=== PATIENT | female | born 1990 | race Caucasian/White ===

== ENCOUNTER → 2022-04-05 | Outpatient (CLI) | payer OTHER ==
[2022-04-05 09:55] LABS: BASO % 0.7 % (0.0-1.0); EOS % 0.5 % (0.0-3.0); HEMATOCRIT 40.9 % (36.0-47.0); LYMPH # 1.8 10^3/uL (1.5-5.0); LYMPH % 42.6 % (24.0-44.0); MEAN CORPUSCULAR HEMOGLOBIN 30.1 pg (27.0-33.0); MEAN CORPUSCULAR HGB CONC 34.2 g/dl (32.0-36.5); MONO # 0.3 10^3/uL (0.0-0.8); MONO % 6.8 % (2.0-8.0); NEUTROPHILS % 48.9 % (36.0-66.0); PLATELET COUNT, AUTOMATED 270 10^3/uL (150-450); RED BLOOD COUNT 4.65 10^6/uL (4.00-5.40); WHITE BLOOD COUNT 4.1 10^3/uL (4.0-10.0)
[2022-04-05 10:19] LABS: LIPASE 32 U/L (12-53)
[2022-04-05 10:22] LABS: ALBUMIN 3.8 G/DL (3.2-5.2); ALKALINE PHOSPHATASE 49 U/L (46-116); ALT/SGPT < 9 U/L (7.0-40); AMYLASE 56 U/L (30-118); AST/SGOT 21 U/L (<34); BILIRUBIN,TOTAL 0.2 MG/DL (0.3-1.2); BLOOD UREA NITROGEN 7 MG/DL (9-23); CALCIUM LEVEL 9.3 MG/DL (8.5-10.1); CARBON DIOXIDE LEVEL 26 MMOL/L (20-31); CHLORIDE LEVEL 103 MMOL/L (98-107); CREATININE FOR GFR 0.63 MG/DL (0.55-1.30); GLOMERULAR FILTRATION RATE > 60.0 (>60); GLUCOSE, FASTING 88 MG/DL (60-100); POTASSIUM SERUM 4.3 MMOL/L (3.5-5.1); SODIUM LEVEL 137 MMOL/L (136-145); TOTAL PROTEIN 7.1 G/DL (5.7-8.2)
[2022-04-05 10:33] LABS: THYROID STIMULATING HORMONE 1.009 uIU/ML (0.55-4.78)
[2022-04-05 10:50] LABS: HEPATITIS B SURFACE ANTIGEN NEGATIVE (NEGATIVE)
[2022-04-05 11:11] LABS: HEPATITIS B CORE ANTIBODY IGM NEGATIVE (NEGATIVE)
[2022-04-05 20:01] LABS: HEPATITIS C VIRUS ABY INDEX 0.1 INDEX (<0.8)
[2022-04-07 10:08] LABS: H PYLORI SERUM QUANT IGA <9.0 units (0.0-8.9); H PYLORI SERUM QUANT IGM <9.0 units (0.0-8.9); H PYLORI SERUM QUANT IgG ABY 1.25 (0.00-0.79)
== END ==
LOC: M LAB 09:12
PROVIDERS: ATTEND Nurse Practitioner Adult Health
DX: R10.816 Epigastric abdominal tenderness (principal); R11.2 Nausea with vomiting, unspecified

== ENCOUNTER → 2022-06-02 | Outpatient (CLI) | payer OTHER | LOC: M PLAIMG 09:39 | PROVIDERS: ATTEND Nurse Practitioner Adult Health | DX: M54.50 Low back pain, unspecified (principal) ==

== ENCOUNTER → 2022-06-05 | Outpatient (REF) | payer OTHER | LOC: M LAB REF 17:15 | PROVIDERS: ATTEND Physician Assistant | DX: N39.0 Urinary tract infection, site not specified (principal) ==

== ENCOUNTER → 2022-06-29 | Outpatient (CLI) | payer OTHER | LOC: M PLAIMG 15:26 | PROVIDERS: ATTEND Nurse Practitioner Adult Health | DX: M54.50 Low back pain, unspecified (principal); M54.16 Radiculopathy, lumbar region ==

== ENCOUNTER → 2022-07-28 | Outpatient (REF) | payer OTHER | LOC: M SFHCWAGY 17:11 | PROVIDERS: ATTEND Nurse Practitioner Family | DX: Z12.4 Encounter for screening for malignant neoplasm of cervix (principal) | CPT/HCPCS: 87624; G0123; G0463 ==

== ENCOUNTER → 2022-09-26 | Outpatient (REF) | payer OTHER | LOC: M SFHCWAGY 17:29 | PROVIDERS: ATTEND Nurse Practitioner Family | DX: N73.9 Female pelvic inflammatory disease, unspecified (principal); N76.0 Acute vaginitis ==

== ENCOUNTER → 2023-01-12 | Outpatient (CLI) | payer OTHER ==
[2023-01-12 10:33] LABS: URIC ACID 3.3 MG/DL (3.1-7.8)
[2023-01-12 10:35] LABS: C REACTIVE PROTEIN QUANTITATIV < 0.40 MG/DL (<1.0)
[2023-01-12 10:36] LABS: RHEUMATOID FACTOR QUANT < 3.5 IU/ML (<14)
[2023-01-13 23:07] LABS: ANA (HEP2) Negative (.); CYCLIC CITRULLINATED PEPTIDE 6 units (0-19)
== END ==
LOC: M LAB 08:44
PROVIDERS: ATTEND Nurse Practitioner Adult Health
DX: M54.50 Low back pain, unspecified (principal)

== ENCOUNTER → 2023-05-24 | Outpatient (CLI) | payer OTHER ==
[2023-05-24 17:57] LABS: HEMATOCRIT 38.5 % (36.0-47.0); HEMOGLOBIN 12.8 g/dl (12.0-15.5); MEAN CORPUSCULAR HEMOGLOBIN 29.6 pg (27.0-33.0); MEAN CORPUSCULAR HGB CONC 33.2 g/dl (32.0-36.5); MEAN CORPUSCULAR VOLUME 88.9 fl (80.0-96.0); PLATELET COUNT, AUTOMATED 295 10^3/uL (150-450); RED BLOOD COUNT 4.33 10^6/uL (4.00-5.40); WHITE BLOOD COUNT 9.9 10^3/uL (4.0-10.0)
[2023-05-24 18:48] LABS: HIV 1&2 SCREEN NEGATIVE (NEGATIVE)
[2023-05-24 18:56] LABS: HEPATITIS C VIRUS ABY INDEX < 0.02 INDEX (<0.8)
[2023-05-24 20:10] LABS: GC DNA AMPLIFICATION NEGATIVE (NEGATIVE)
== END ==
LOC: M PLALAB 15:56
PROVIDERS: ATTEND Advanced Practice Midwife
DX: Z34.91 Encounter for supervision of normal pregnancy, unspecified, first trimester (principal); Z3A.00 Weeks of gestation of pregnancy not specified

== ENCOUNTER → 2023-06-11 | Outpatient (REF) | payer OTHER | LOC: M PLALAB 15:05 | PROVIDERS: ATTEND Advanced Practice Midwife | DX: Z34.92 Encounter for supervision of normal pregnancy, unspecified, second trimester (principal) ==

== ENCOUNTER → 2023-07-13 | Outpatient (REF) | payer OTHER | LOC: M SFHCWAGY 10:18 | PROVIDERS: ATTEND Obstetrics & Gynecology | DX: R82.90 Unspecified abnormal findings in urine (principal) ==

== ENCOUNTER → 2023-07-20 | Outpatient (CLI) | payer OTHER | LOC: M WHC 08:21 | PROVIDERS: ATTEND Advanced Practice Midwife | DX: Z34.92 Encounter for supervision of normal pregnancy, unspecified, second trimester (principal); Z3A.19 19 weeks gestation of pregnancy ==

== ENCOUNTER → 2023-09-18 | Outpatient (REF) | payer OTHER ==
[2023-09-18 15:00] LABS: GC DNA AMPLIFICATION NEGATIVE (NEGATIVE)
== END ==
LOC: M SFHCWAGY 12:39
PROVIDERS: ATTEND Obstetrics & Gynecology
DX: Z34.92 Encounter for supervision of normal pregnancy, unspecified, second trimester (principal)

== ENCOUNTER → 2023-09-18 | Outpatient (CLI) | payer OTHER ==
[2023-09-18 13:56] LABS: HEMATOCRIT 38.3 % (36.0-47.0); HEMOGLOBIN 12.7 g/dl (12.0-15.5); MEAN CORPUSCULAR HEMOGLOBIN 30.3 pg (27.0-33.0); MEAN CORPUSCULAR HGB CONC 33.2 g/dl (32.0-36.5); MEAN CORPUSCULAR VOLUME 91.4 fl (80.0-96.0); PLATELET COUNT, AUTOMATED 258 10^3/uL (150-450); RED BLOOD COUNT 4.19 10^6/uL (4.00-5.40); WHITE BLOOD COUNT 9.2 10^3/uL (4.0-10.0)
== END ==
LOC: M PLALAB 10:19
PROVIDERS: ATTEND Obstetrics & Gynecology
DX: Z34.92 Encounter for supervision of normal pregnancy, unspecified, second trimester (principal); Z3A.00 Weeks of gestation of pregnancy not specified

== ENCOUNTER → 2023-10-01 | Outpatient (CLI) | payer OTHER | LOC: M RAD 09:03 | PROVIDERS: ATTEND Advanced Practice Midwife | DX: Z34.93 Encounter for supervision of normal pregnancy, unspecified, third trimester (principal); Z3A.29 29 weeks gestation of pregnancy ==

== ENCOUNTER → 2023-11-13 | Outpatient (REF) | payer OTHER | LOC: M SFHCWAGY 15:03 | PROVIDERS: ATTEND Advanced Practice Midwife | DX: Z34.83 Encounter for supervision of other normal pregnancy, third trimester (principal); Z36.85 Encounter for antenatal screening for Streptococcus B ==

== ENCOUNTER 2023-12-08 10:29 | Inpatient (IN) | payer OTHER ==
[2023-12-08] VITALS (28 sets, daily range): BP systolic 92–179; BP diastolic 49–124
[~2023-12-08] VITALS: Ht 157.5 cm; Wt 100.0 kg
[2023-12-08] MEDS ORDERED: PRENTAB9 PO (11:02)
[2023-12-08] MEDS ORDERED: HOME MED LIST COMPLETE! XX SCH (11:05)
[2023-12-08 13:24] LABS: HEMATOCRIT 41.8 % (36.0-47.0); HEMOGLOBIN 14.4 g/dl (12.0-15.5); MEAN CORPUSCULAR HEMOGLOBIN 31.4 pg (27.0-33.0); MEAN CORPUSCULAR HGB CONC 34.4 g/dl (32.0-36.5); MEAN CORPUSCULAR VOLUME 91.1 fl (80.0-96.0); PLATELET COUNT, AUTOMATED 244 10^3/uL (150-450); RED BLOOD COUNT 4.59 10^6/uL (4.00-5.40); WHITE BLOOD COUNT 13.3 10^3/uL (4.0-10.0)
[2023-12-08] MEDS ORDERED: OXYTOCIN DRIP 30 UNITS in IV 1 EA IV PRN (13:55)
[2023-12-08] MEDS: miSOPROStol 50MCG 1/2 TABLET PO SCH (14:41)
[2023-12-08] MEDS: LACTATED RINGER'S 1000 ML IV STA (14:43)
[2023-12-08] MEDS: LR 1,000 ML IV SCH ×2 (15:44→19:50)
[2023-12-08 16:21] LABS: HEPATITIS C VIRUS ABY INDEX 0.02 INDEX (<0.8)
[2023-12-08] MEDS ORDERED: EPIDURAL/PCA KEYS XX PRN (19:40)
[2023-12-08] MEDS ORDERED: NALOXONE INJ 0.4MG/1ML VIAL IV PRN (19:40)
[2023-12-08] MEDS ORDERED: diphenhydrAMINE 50MG/ML VIAL IV PRN (19:40)
[2023-12-08] MEDS ORDERED: ONDANSETRON 4MG 2ML VIAL IV PRN (19:40)
[2023-12-08] MEDS: FENTANYL/ROPIVACAINE/NACL BAG 100 ML EPIDURAL SCH (19:48)
[2023-12-08] MEDS: OXYTOCIN DRIP 30 UNITS in IV 1 EA IV SCH (19:49)
[2023-12-08] MEDS: ePHEDrine SULFATE 25 MG/5 ML(5MG/ML) SYRINGE IVP PRN (22:34)
[2023-12-08] MEDS: LR 500 ML IV PRN (22:41)
[2023-12-09] VITALS (20 sets, daily range): BP systolic 99–132; BP diastolic 52–78; TEMP 100.5; O2SAT 98–100
[2023-12-09] MEDS: AMPICILLIN SOD 2 GM in D5W MINI-BAG PLUS 100 ML IV ONE (01:41)
[2023-12-09 05:36] LABS: CORD GAS ABE V -3.3; CORD GAS HCO3 V 22.4 MMOL/L; CORD GAS O2 SAT V 74.3 %; CORD GAS PCO2 V 42.6 mmHg; CORD GAS PH V 7.339 UNITS; CORD GAS PO2 V 33.1 mmHg; CORD GAS SBC V 21.3 MMOL/L; CORD GAS TCO2 V 23.7 MMOL/L
[2023-12-09 05:37] LABS: CORD GAS ABE A -5.1; CORD GAS HCO3 A 23.1 MMOL/L; CORD GAS O2 SAT A 30.4 %; CORD GAS PCO2 A 57.2 mmHg; CORD GAS PH A 7.225 UNITS; CORD GAS PO2 A 16.2 mmHg; CORD GAS SBC A 18.9 MMOL/L; CORD GAS TCO2 A 24.9 MMOL/L
[2023-12-09] MEDS ORDERED: DIBUCAINE 1% OINTMENT 30GM TOP PRN (05:40)
[2023-12-09] MEDS ORDERED: ACETAMINOPHEN 500 MG TAB PO PRN (05:40)
[2023-12-09] MEDS ORDERED: RHO(D) IMMUNE GLOBULIN/MALTOSE 500MCG(2500IU)/2.2ML VIAL (WINRHO) IM SCH (05:40)
[2023-12-09] MEDS ORDERED: DOCUSATE SODIUM 100MG CAPSULE PO PRN (05:40)
[2023-12-09] MEDS ORDERED: METHYLERGONOVINE MALEATE 0.2 MG TAB PO PRN (05:40)
[2023-12-09] MEDS: PRENATAL VITAMINS CHEWABLE TABLET PO SCH (09:00)
[2023-12-09] MEDS: IBUPROFEN 800 MG TAB PO PRN (14:46)
[2023-12-09] MEDS: ACETAMINOPHEN TAB 650MG DOSE (2X325MG) PO PRN (20:22)
[2023-12-10 02:00] VITALS: BP 110/53; O2SAT 98
[2023-12-10 06:00] VITALS: BP 106/55; O2SAT 99
[2023-12-10 10:00] VITALS: BP 126/66; O2SAT 98
[2023-12-10 14:00] VITALS: BP 124/66; O2SAT 97
[2023-12-10 18:00] VITALS: BP 110/57; O2SAT 98
[2023-12-10 22:00] VITALS: BP 111/69; O2SAT 99
[2023-12-10] MEDS: IBUPROFEN 600MG TAB PO PRN (22:05)
[2023-12-11 02:00] VITALS: BP 108/56; O2SAT 97
[2023-12-11 06:00] VITALS: BP 123/75; O2SAT 100
[2023-12-11] MEDS: MEASLES,MUMPS,RUBELLA VACCINE INJ (MMR-II) SC.IMMUN ONE (07:07)
[2023-12-11 10:00] VITALS: BP 125/73; O2SAT 99
== END 2023-12-11 13:14 | disposition home or self-care (01) | DRG 807 ==
LOC: M LDO 10:29 → M LDI 13:32 → M OBS 12-09 08:10
PROVIDERS: ADMIT Obstetrics & Gynecology; ATTEND Obstetrics & Gynecology
PROC: 10E0XZZ Delivery of Products of Conception, External Approach (ICD-10-PCS; principal; 2023-12-09)
DX: O69.1XX0 Labor and delivery complicated by cord around neck, with compression, not applicable or unspecified (principal); Z37.0 Single live birth; Z3A.39 39 weeks gestation of pregnancy

== ENCOUNTER → 2024-02-25 | Outpatient (REF) | payer OTHER ==
[~2024-02-25] MED LIST: PRENTAB9 PO
== END ==
LOC: M SFHCWAGY 14:29
PROVIDERS: ATTEND Advanced Practice Midwife
DX: A63.0 Anogenital (venereal) warts (principal)

== ENCOUNTER → 2024-05-06 | Outpatient (REF) | payer OTHER ==
[2024-05-06 14:59] LABS: Trichomonas vaginalis (AMP) NOT DETECTED (NEGATIVE)
[2024-05-06 15:23] LABS: GC DNA AMPLIFICATION NEGATIVE (NEGATIVE)
[2024-05-08 14:36] LABS: HPV APTIMA Not Detected (Not Detected)
== END ==
LOC: M SFHCWAGY 12:20
PROVIDERS: ATTEND Nurse Practitioner Family
DX: N93.0 Postcoital and contact bleeding (principal); N94.10 Unspecified dyspareunia
CPT/HCPCS: 87070; 87077; 87624; 87661; 87810; 87850; G0123

== ENCOUNTER → 2024-05-30 | Outpatient (CLI) | payer OTHER | LOC: M WHC 14:45 | PROVIDERS: ATTEND Nurse Practitioner Family | DX: N93.0 Postcoital and contact bleeding (principal); N94.10 Unspecified dyspareunia; R93.89 Abnormal findings on diagnostic imaging of other specified body structures; Z97.5 Presence of (intrauterine) contraceptive device ==